=== PATIENT | male | born 1950 | race Caucasian/White ===

== ENCOUNTER 2018-01-13 19:35 | Emergency (ER) | payer OTHER ==
--- NOTE | 2018-01-13 20:09 | PDOC ---
History of Present Illness - General History Source: Patient Exam Limitations: No Limitations - History of Present Illness Initial Comments: 01/13/18 20:33 The patient is a 67 year old male, with a significant PMH of BPH and 2x prostate biopsy, who presents to the emergency department with urinary retention which began today. The patient states when he tried to urinate today he experienced excruciating pain, no relief with warm shower or Motrin. The patient denies chest pain, shortness of breath, headache and dizziness. Denies fever, chills, nausea, vomit, diarrhea and constipation. Denies frequency and hematuria. Allergies: NKDA Past surgical history: None reported Social history: None reported PCP: None reported <Angelica Sy - Last Filed: 01/13/18 20:28> <Rehana Car - Last Filed: 01/13/18 22:57> - General Chief Complaint: Urinary Problem Stated Complaint: URINARY RETENTION Time Seen by Provider: 01/13/18 20:07 Past History <Angelica Sy - Last Filed: 01/13/18 20:28> - Past Medical History COPD: No Disorders: Yes (BPH) - Suicide/Smoking/Psychosocial Hx Smoking History: Never smoked Hx Alcohol Use: No Drug/Substance Use Hx: No Substance Use Type: None <Rehana Car - Last Filed: 01/13/18 22:57> - Past Medical History Allergies/Adverse Reactions: Allergies Allergy/AdvReac Type Severity Reaction Status Date / Time No Known Allergies Allergy Verified 01/13/18 19:57 Home Medications: Ambulatory Orders Cefpodoxime Proxetil [Vantin (Nf) -] 100 mg PO BID #14 tablet 01/13/18 Ibuprofen [Advil -] 200 mg PO ONCE 01/13/18 Sulfamethoxazole/Trimethoprim [Bactrim Ds Tablet] 1 each PO ONCE 01/13/18 Review of Systems - Review of Systems Comments:: 01/13/18 20:34 GENERAL/CONSTITUTIONAL: No fever or chills. No weakness. HEAD, EYES, EARS, NOSE AND THROAT: No change in vision. No ear pain or discharge. No sore throat. CARDIOVASCULAR: No chest pain or shortness of breath. RESPIRATORY: No cough, wheezing, or hemoptysis. GASTROINTESTINAL: No nausea, vomiting, diarrhea or constipation. GENITOURINARY:+Dysuria. No frequency, or change in urination. MUSCULOSKELETAL: No joint or muscle swelling or pain. No neck or back pain. SKIN: No rash NEUROLOGIC: No headache, vertigo, loss of consciousness, or change in strength/ sensation. ENDOCRINE: No increased thirst. No abnormal weight change. HEMATOLOGIC/LYMPHATIC: No anemia, easy bleeding, or history of blood clots. ALLERGIC/IMMUNOLOGIC: No hives or skin allergy. <Angelica Sy - Last Filed: 01/13/18 20:28> *Physical Exam - Vital Signs Last Vital Signs Temp Pulse Resp BP Pulse Ox 98.4 F 90 16 139/84 97 01/13/18 19:56 01/13/18 19:56 01/13/18 19:56 01/13/18 19:56 01/13/18 19:56 - Physical Exam Comments: 01/13/18 20:34 GENERAL: Awake, alert, and fully oriented, in no acute distress HEAD: No signs of trauma EYES: PERRLA, EOMI, sclera anicteric, conjunctiva clear ENT: Auricles normal inspection, hearing grossly normal, nares patent, oropharynx clear without exudates. Moist mucosa NECK: Normal ROM, supple, no lymphadenopathy, JVD, or masses LUNGS: Breath sounds equal, clear to auscultation bilaterally. No wheezes, and no crackles HEART: Regular rate and rhythm, normal S1 and S2, no murmurs, rubs or gallops ABDOMEN: Soft, nontender, normoactive bowel sounds. No guarding, no rebound. No masses EXTREMITIES: Normal range of motion, no edema. No clubbing or cyanosis. No cords, erythema, or tenderness NEUROLOGICAL: Cranial nerves II through XII grossly intact. Normal speech, normal gait SKIN: Warm, Dry, normal turgor, no rashes or lesions noted. <Angelica Sy - Last Filed: 01/13/18 20:28> - Vital Signs Last Vital Signs Temp Pulse Resp BP Pulse Ox 98.4 F 90 16 139/84 97 01/13/18 19:56 01/13/18 19:56 01/13/18 19:56 01/13/18 19:56 01/13/18 19:56 <Rehana Car - Last Filed: 01/13/18 22:57> Medical Decision Making - Medical Decision Making 01/13/18 22:56 Pt placed with a leg bag; he will follow with his own urologist. <Rehana Car - Last Filed: 01/13/18 22:57> *DC/Admit/Observation/Transfer - Attestations Scribe Attestion: 01/13/18 20:35 Documentation prepared by Angelica Sy, acting as medical science liaison for Rehana Car MD.. <Agnelica Sy - Last Filed: 01/13/18 20:28> - Discharge Dispostion Decision to Admit order: No <Rehana Car - Last Filed: 01/13/18 22:57> Diagnosis at time of Disposition: Urinary retention - Discharge Dispostion Disposition: HOME Condition at time of disposition: Improved - Prescriptions Prescriptions: Cefpodoxime Proxetil [Vantin (Nf) -] 100 mg PO BID #14 tablet - Referrals Referrals: Regina Balderas MD [Primary Care Provider] - - Patient Instructions Printed Discharge Instructions: DI for Urinary Retention in Men - Post Discharge Activity Forms/Work/School Notes: Back to Work
[2018-01-13 20:24] VITALS: BP 139/84; PULSE 90; TEMP 98.4; BMI 33.9
[2018-01-13] MEDS ORDERED: CEFPODOXIME PROXETIL 100 MG TABLET PO ONE (20:31)
[2018-01-13 20:32] LABS: PH,URINE 5.5 (4.5-8); URINE APPEARANCE Clear; URINE BILIRUBIN Negative (NEGATIVE); URINE COLOR Yellow; URINE GLUCOSE (UA) Negative (NEGATIVE); URINE KETONE Negative (NEGATIVE); URINE LEUK ESTERASE Negative (NEGATIVE); URINE NITRITE Negative (NEGATIVE); URINE PROTEIN Negative (NEGATIVE); URINE UROBILINOGEN 0.2 (0.2-1.0)
[2018-01-13 20:58] LABS: EPI CELLS FEW /HPF; URINE RBC 0-2 /hpf (0-3); URINE WBC 0-2 (0-2)
== END 2018-01-13 20:45 | disposition home or self-care (01) ==
LOC: FER 19:35
DX: Z46.6 Encounter for fitting and adjustment of urinary device (principal); N40.0 Benign prostatic hyperplasia without lower urinary tract symptoms
CPT/HCPCS: 81003; 81015; 87086; 99282-25